=== PATIENT | female | born 1950 | race Caucasian/White ===

== ENCOUNTER 2018-01-03 13:45 | Inpatient (IN) | payer OTHER ==
[~2018-01-03] VITALS: Ht 157.5 cm; Wt 68.0 kg
[~2018-01-03 13:45] MED LIST: ASPIR 8181 MG PO; AVAPRO300 MG PO; CLONAZEPAM0.5 MG PO; COREG CR10 MG PO; CRESTOR20 MG PO; FORTAMET1000 MG PO; JANUVIA100 MG PO; NORVASC10 MG PO
[2018-01-10] MEDS ORDERED: OXYC1TAB9 PO (14:15)
[2018-01-10] MEDS ORDERED: FAMOTIDINE20 MG PO (14:15)
== END 2018-01-10 17:36 | disposition home or self-care (01) | DRG 331 ==
LOC: O/R 01-07 05:25 → SURG 01-07 05:25 → SURH 01-07 13:15 → SURG 01-07 16:22 → MEDI 01-07 16:22 → SURG 01-07 20:23
PROVIDERS: Surgery
PROC: 0DTP4ZZ Resection of Rectum, Percutaneous Endoscopic Approach (ICD-10-PCS; 2018-01-07)
PROC: 07TC4ZZ Resection of Pelvis Lymphatic, Percutaneous Endoscopic Approach (ICD-10-PCS; 2018-01-07)
PROC: 0DJD8ZZ Inspection of Lower Intestinal Tract, Via Natural or Artificial Opening Endoscopic (ICD-10-PCS; 2018-01-07)
PROC: 4A12X45 Monitoring of Cardiac Electrical Activity, Ambulatory, External Approach (ICD-10-PCS; 2018-01-07)
PROC: 0DTN4ZZ Resection of Sigmoid Colon, Percutaneous Endoscopic Approach (ICD-10-PCS; principal; 2018-01-07 13:15)
DX: D12.7 Benign neoplasm of rectosigmoid junction (principal); I11.9 Hypertensive heart disease without heart failure; E11.9 Type 2 diabetes mellitus without complications; E78.00 Pure hypercholesterolemia, unspecified; F41.0 Panic disorder [episodic paroxysmal anxiety]